=== PATIENT | female | born 1980 | race Caucasian/White ===

== ENCOUNTER 2018-04-05 14:56 | Emergency (ER) | payer OTHER ==
[2018-04-05 15:11] VITALS: BP 131/71; PULSE 70; TEMP 98.7; BMI 23.6
[2018-04-05] MEDS ORDERED: METOCLOPRAMIDE HCL INJECTION 10 MG/2 ML VIAL IVPUSH ONE (16:01)
[2018-04-05] MEDS ORDERED: SODIUM CHLORIDE 1,000 ML IV STA (16:01)
[2018-04-05] MEDS ORDERED: METOCLOPRAMIDE HCL INJECTION 10 MG/2 ML VIAL ONE (16:24)
--- NOTE | 2018-04-05 16:40 | PDOC ---
History of Present Illness - General History Source: Patient Exam Limitations: Clinical Condition - History of Present Illness Initial Comments: 04/05/18 16:34 Patient with no significant past medication present with complaint of 2 weeks history of dizziness, spinning sensation, nausea and increased light sensitivity upon week. Patient saw a PCP 2 weeks ago for same symptoms and was prescribed Imitrex for possible migraine or vertigo. Patient reports symptoms persistent and she follow-up in urgent care today who gave her meclizine and to her to come to ER for head CAT scan due to possible intracranial mass versus vertigo. Patient denies vomiting, headache, chest pain, shortness of breath, blurry vision. Patient denies any other symptoms Timing/Duration: other (2 weeks) <Raciel Vernon - Last Filed: 04/07/18 11:30> <Darshana Buckley - Last Filed: 04/09/18 09:32> - General Chief Complaint: Lightheaded Stated Complaint: Migraine Headache Time Seen by Provider: 04/05/18 15:28 Past History - Past Medical History Asthma: No Cancer: No Cardiac Disorders: No Diabetes: No HTN: No Seizures: No Thyroid Disease: No - Surgical History Appendectomy: Yes - Suicide/Smoking/Psychosocial Hx Smoking Status: No Smoking History: Never smoked Have you smoked in the past 12 months: No Number of Cigarettes Smoked Daily: 0 Information on smoking cessation initiated: No Hx Alcohol Use: No Drug/Substance Use Hx: No Hx Substance Use Treatment: No <Raciel Vernon - Last Filed: 04/07/18 11:30> <Darshana Buckley - Last Filed: 04/09/18 09:32> - Past Medical History Allergies/Adverse Reactions: Allergies Allergy/AdvReac Type Severity Reaction Status Date / Time No Known Drug Allergies Allergy Verified 04/05/18 15:11 Home Medications: Ambulatory Orders Ibuprofen [Motrin -] 600 mg PO Q8H 04/05/18 Meclizine HCl [Antivert -] 25 mg PO Q8H 04/05/18 Metoclopramide HCl [Reglan] 10 mg PO Q8H PRN #20 tablet 04/05/18 Ondansetron [Zofran Odt -] 4 mg SL Q8H PRN #21 od.tablet 04/05/18 Review of Systems - Review of Systems Able to Perform ROS?: Yes Is the patient limited Chinese proficient: No Constitutional: No: Chills, Fever, Malaise, Weakness HEENTM: Yes: Other (increase photosensitivity). No: Blurred Vision, Tearing, Recent change in vision, Double Vision Respiratory: No: Symptoms reported Cardiac (ROS): No: Symptoms Reported ABD/GI: Yes: See HPI, Nausea. No: Vomiting All Other Systems: Reviewed and Negative <Raciel Vernon - Last Filed: 04/07/18 11:30> *Physical Exam - Vital Signs Last Vital Signs Temp Pulse Resp BP Pulse Ox 98.7 F 70 16 131/71 100 04/05/18 15:08 04/05/18 15:08 04/05/18 15:08 04/05/18 15:08 04/05/18 15:08 - Physical Exam Comments: 04/05/18 16:37 GENERAL: Well developed, well nourished. Awake and alert. No acute distress. HEENT: Normocephalic, atraumatic. PERRLA, EOMI. No conjunctival pallor. Sclera are non-icteric. Moist mucous membranes. Oropharynx is clear. NECK: Supple. Full ROM. CARDIOVASCULAR: Regular rate and rhythm. No murmurs, rubs, or gallops. Distal pulses are 2+ and symmetric. PULMONARY: No evidence of respiratory distress. Lungs clear to auscultation bilaterally. No wheezing, rales or rhonchi. ABDOMINAL: Soft. Non-tender. Non-distended. No rebound or guarding. No organomegaly. Normoactive bowel sounds. MUSCULOSKELETAL Normal range of motion at all joints. EXTREMITIES: No cyanosis. No clubbing. No edema. No calf tenderness. SKIN: Warm and dry. Normal capillary refill. No rashes. No jaundice. NEUROLOGICAL: Alert, awake, appropriate. Gait is normal without ataxia. Normal tandem walking. Normal hand to nose coordination. PSYCHIATRIC: Cooperative. Good eye contact. Appropriate mood General Appearance: Yes: Nourished, Appropriately Dressed. No: Apparent Distress <Raciel Vernon - Last Filed: 04/07/18 11:30> - Vital Signs Last Vital Signs Temp Pulse Resp BP Pulse Ox 98.7 F 70 16 131/71 100 04/05/18 15:08 04/05/18 15:08 04/05/18 15:08 04/05/18 15:08 04/05/18 15:08 <Darshana Buckley - Last Filed: 04/09/18 09:32> Moderate Sedation - Procedure Monitoring Vital Signs: Procedure Monitoring Vital Signs Temperature 98.7 F 04/05/18 15:08 Pulse Rate 70 04/05/18 15:08 Respiratory Rate 16 04/05/18 15:08 Blood Pressure 131/71 04/05/18 15:08 O2 Sat by Pulse Oximetry (%) 100 04/05/18 15:08 <Raciel Vernon - Last Filed: 04/07/18 11:30> - Procedure Monitoring Vital Signs: Procedure Monitoring Vital Signs Temperature 98.7 F 04/05/18 15:08 Pulse Rate 70 04/05/18 15:08 Respiratory Rate 16 04/05/18 15:08 Blood Pressure 131/71 04/05/18 15:08 O2 Sat by Pulse Oximetry (%) 100 04/05/18 15:08 <Darshana Buckley - Last Filed: 04/09/18 09:32> ED Treatment Course - LABORATORY CBC & Chemistry Diagram: 04/05/18 16:40 04/05/18 16:40 - RADIOLOGY Radiology Studies Ordered: Category Date Time Status HEAD CT WITHOUT CONTRAST [CT] Stat CT Scan 04/05/18 16:29 Ordered <Raciel Vernon - Last Filed: 04/07/18 11:30> - LABORATORY CBC & Chemistry Diagram: 04/05/18 16:40 04/05/18 16:40 - ADDITIONAL ORDERS Additional order review: 04/05/18 18:49 Urine Culture - Final Urine - Urine Clean Catch Escherichia Coli 04/05/18 16:40 RBC 4.27 MCV 87.2 MCHC 34.8 RDW 13.5 MPV 9.5 Neutrophils % 56.6 D Lymphocytes % 36.2 D Monocytes % 6.3 Eosinophils % 0.5 Basophils % 0.4 - Medications Given in the ED: ED Medications Discontinued Medications Generic Name Dose Route Start Last Admin Trade Name Freq PRN Reason Stop Dose Admin Sodium Chloride 1,000 mls @ 1,000 mls/hr 04/05/18 16:01 04/05/18 16:45 Normal Saline - IV 04/05/18 17:00 1,000 mls/hr ASDIR STA Administration Meclizine HCl 25 mg 04/05/18 16:59 04/05/18 17:48 Antivert - PO 04/05/18 17:00 25 mg ONCE ONE Administration Metoclopramide HCl 10 mg 04/05/18 16:01 04/05/18 16:45 Reglan Injection - IVPUSH 04/05/18 16:02 10 mg ONCE ONE Administration <Darshana Buckley - Last Filed: 04/09/18 09:32> Medical Decision Making - Medical Decision Making 04/05/18 16:38 Patient with no significant past medication present with complaint of sudden onset of dizziness, spinning sensation, nausea and light sensitivity which has been persistent for 2 weeks. Patient saw PCP and prescribed Imitrex which did not help her symptoms. Patient seen in the urgent care and given meclizine when she reported help with symptoms by symptoms come back and advise by urgent care to have head CT done. Clinical exam unremarkable with normal neuro exam. CBC, CMP, UA and urine hCG ordered. Reglan 10 mg IV ordered. IV hydration with normal saline 1 L ordered. Symptoms likely vertigo and patient will be discharged home to continue meclizine with neurology follow-up if negative head CT 04/05/18 17:55 CBC,CMP labs shows no abnormality. UA,UHCG still pending. patient feeling better with reglan but report still have mild dizziness. meclizine 25mg PO given. pt sent for head CT. pt had tubal ligation and sign paper to have CT done without waiting for hcg 04/05/18 18:28 04/05/18 19:09 pt report complete resolve of symptoms with reglan and meclizine. pt request rx for reglan. head CT pending reading. pt signed out to overnight ROSALINA Grady <Raciel Vernon - Last Filed: 04/07/18 11:30> *DC/Admit/Observation/Transfer - Discharge Dispostion Decision to Admit order: No <Raciel Vernon - Last Filed: 04/07/18 11:30> - Attestations Physician Attestion: I reviewed the case with the mid-level practitioner and agree with the mid- level practitioner's assessment, diagnosis and disposition. CTH obtained, as patient has been having dizziness and FIELDS that wakes her in AM. If neg, DC home. <Darshana Buckley - Last Filed: 04/09/18 09:32> Diagnosis at time of Disposition: Vertigo - Discharge Dispostion Disposition: HOME Condition at time of disposition: Stable - Prescriptions Prescriptions: Metoclopramide HCl [Reglan] 10 mg PO Q8H PRN #20 tablet PRN Reason: vertigo Ondansetron [Zofran Odt -] 4 mg SL Q8H PRN #21 od.tablet PRN Reason: nausea - Referrals Referrals: Wendy Babin MD [Primary Care Provider] - Jean Glover MD [Staff Physician] - - Patient Instructions Printed Discharge Instructions: Vertigo, DI for Vertigo Additional Instructions: Your labs was normal. Your head CAT scan was normal. your symptoms are likely from vertigo. take the prescribed meclizine as needed for vertigo with zofran as needed for nausea. take reglan as needed for vertigo if meclizine does not work.follow-up with referred neurologist as soon as possible - Post Discharge Activity
[2018-04-05 16:55] LABS: BASO % 0.4 % (0-2.0); EOS % 0.5 % (0-4.5); HEMATOCRIT 37.2 % (32.4-45.2); LYMPH % 36.2 % (8-40); MCH 30.4 pg (25.7-33.7); MCHC 34.8 g/dl (32.0-36.0); MEAN CELL VOLUME 87.2 fl (80-96); MEAN PLT VOLUME 9.5 fl (7.5-11.1); MONO % 6.3 % (3.8-10.2); NEUT % 56.6 % (42.8-82.8); PLATELET COUNT 200 K/MM3 (134-434); RBC 4.27 M/mm3 (3.60-5.2); RDW 13.5 % (11.6-15.6)
[2018-04-05] MEDS ORDERED: MECLIZINE HCL 25 MG TABLET (FP) PO ONE (16:59)
[2018-04-05 17:17] LABS: ALBUMIN 3.7 g/dl (3.4-5.0); ALK PHOS 51 U/L (45-117); ANION GAP 5 MMOL/L (8-16); BILIRUBIN,TOTAL 0.4 mg/dL (0.2-1); BLOOD UREA NITROGEN 9 mg/dL (7-18); CALCIUM 8.6 mg/dL (8.5-10.1); CHLORIDE 103 mmol/L (98-107); CO2 29 mmol/L (21-32); CREATININE 0.6 mg/dL (0.55-1.3); GLUCOSE,RANDOM 78 mg/dL (74-106); POTASSIUM 4.1 mmol/L (3.5-5.1); SGOT/AST 17 U/L (15-37); SGPT/ALT 16 U/L (13-61); SODIUM 138 mmol/L (136-145); TOT PROT 7.4 g/dl (6.4-8.2)
[2018-04-05] MEDS ORDERED: MECLIZINE HCL 25 MG TABLET (FP) ONE (17:47)
[2018-04-05 19:16] LABS: URINE APPEARANCE CLEAR; URINE BILIRUBIN NEGATIVE (<2.0 mg/dL); URINE COLOR STRAW; URINE GLUCOSE (UA) NEGATIVE (NEGATIVE); URINE KETONE NEGATIVE (NEGATIVE); URINE LEUK ESTERASE NEGATIVE (NEGATIVE); URINE NITRITE NEGATIVE (NEGATIVE); URINE PROTEIN NEGATIVE (NEGATIVE); URINE UROBILINOGEN NEGATIVE mg/dL (0.2-1.0)
--- NOTE | 2018-04-05 19:30 | PDOC ---
*Physical Exam - Vital Signs Last Vital Signs Temp Pulse Resp BP Pulse Ox 98.7 F 70 16 131/71 100 04/05/18 15:08 04/05/18 15:08 04/05/18 15:08 04/05/18 15:08 04/05/18 15:08 ED Treatment Course - LABORATORY CBC & Chemistry Diagram: 04/05/18 16:40 04/05/18 16:40 - ADDITIONAL ORDERS Additional order review: Laboratory Results 04/05/18 04/05/18 18:49 16:40 Sodium 138 Potassium 4.1 Chloride 103 Carbon Dioxide 29 Anion Gap 5 L BUN 9 Creatinine 0.6 Creat Clearance w eGFR > 60 Random Glucose 78 Calcium 8.6 Total Bilirubin 0.4 AST 17 ALT 16 Alkaline Phosphatase 51 Total Protein 7.4 Albumin 3.7 Urine Color Straw Urine Appearance Clear Urine pH 7.0 Ur Specific [place] 1.010 Urine Protein Negative Urine Glucose (UA) Negative Urine Ketones Negative Urine Blood Negative Urine Nitrite Negative Urine Bilirubin Negative Urine Urobilinogen Negative Ur Leukocyte Esterase Negative 04/05/18 16:40 RBC 4.27 MCV 87.2 MCHC 34.8 RDW 13.5 MPV 9.5 Neutrophils % 56.6 D Lymphocytes % 36.2 D Monocytes % 6.3 Eosinophils % 0.5 Basophils % 0.4 - Medications Given in the ED: ED Medications Discontinued Medications Generic Name Dose Route Start Last Admin Trade Name Freq PRN Reason Stop Dose Admin Sodium Chloride 1,000 mls @ 1,000 mls/hr 04/05/18 16:01 04/05/18 16:45 Normal Saline - IV 04/05/18 17:00 1,000 mls/hr ASDIR STA Administration Meclizine HCl 25 mg 04/05/18 16:59 04/05/18 17:48 Antivert - PO 04/05/18 17:00 25 mg ONCE ONE Administration Metoclopramide HCl 10 mg 04/05/18 16:01 04/05/18 16:45 Reglan Injection - IVPUSH 04/05/18 16:02 10 mg ONCE ONE Administration Medical Decision Making - Medical Decision Making 04/05/18 19:25 Patient endorsed to follow CT scan and disposition Patient Full Name: MARIAH WILD Patient Accession No: [id number] Patient : 1980 Reason for Exam: dizziness Referring Physician: LEELEE WINN Patient Name: JUNITO LEMUS THIS IS A PRELIMINARY REPORT FROM [facility] [employer] [facility] DATE OF SERVICE: 2018-04-05 18:20:49 IMAGES: [id number] EXAM: CT head without contrast HISTORY: Dizziness COMPARISON: None. FINDINGS: There is no evidence of acute infarction. There is no hemorrhage. No mass lesion is seen. There is no skull fracture. Visualized portions of the paranasal sinuses are essentially clear. Mastoid air cells are normally pneumatized. One or more of the following dose reduction techniques were used: automated exposure control, adjustment of the mA and/or kV according to patient size, use of iterative reconstructive technique. THIS DOCUMENT HAS BEEN ELECTRONICALLY SIGNED Lon Horn MD 04/05/2018 19:09 BIRDIE De [place] Paz Please call Imaging Shift Engineer [phone]) with questions. INTERPRETING RADIOLOGIST: Lon Horn MD Electronically Signed: Apr 05, 2018 07:10PM EST I discussed the physical exam findings, ancillary test results and final diagnoses with the patient. I answered all of the patient's questions. The patient was satisfied with the care received and felt comfortable with the discharge plan and treatment plan. The Patient agrees to follow up with the primary care physician within 24-72 hours. *DC/Admit/Observation/Transfer Diagnosis at time of Disposition: Vertigo - Discharge Dispostion Disposition: HOME Condition at time of disposition: Stable - Prescriptions Prescriptions: Metoclopramide HCl [Reglan] 10 mg PO Q8H PRN #20 tablet PRN Reason: vertigo Ondansetron [Zofran Odt -] 4 mg SL Q8H PRN #21 od.tablet PRN Reason: nausea - Referrals Referrals: Jean Glover MD [Staff Physician] - Wendy Babin MD [Primary Care Provider] - - Patient Instructions Printed Discharge Instructions: Vertigo, DI for Vertigo Additional Instructions: Your labs was normal. Your head CAT scan was normal. your symptoms are likely from vertigo. take the prescribed meclizine as needed for vertigo with zofran as needed for nausea. take reglan as needed for vertigo if meclizine does not work.follow-up with referred neurologist as soon as possible - Post Discharge Activity
== END 2018-04-05 20:19 | disposition home or self-care (01) ==
LOC: JER 14:56
PROC: 3E033GC Introduction of Other Therapeutic Substance into Peripheral Vein, Percutaneous Approach (ICD-10-PCS; principal; 2018-04-05)
PROC: 3E0337Z Introduction of Electrolytic and Water Balance Substance into Peripheral Vein, Percutaneous Approach (ICD-10-PCS; 2018-04-05)
DX: R42 Dizziness and giddiness (principal)
CPT/HCPCS: 36415; 70450-TC; 80053; 81003; 85025; 87086; 87186; 96361; 96374; 99282-25; J7030

== ENCOUNTER 2018-08-14 07:08 | Emergency (ER) | payer OTHER ==
[2018-08-14 07:20] VITALS: BMI 23.8
--- NOTE | 2018-08-14 07:34 | PDOC ---
History of Present Illness - General Chief Complaint: Sore Throat Stated Complaint: THROAT/EAR PAIN Time Seen by Provider: 08/14/18 07:33 - History of Present Illness Initial Comments: 38 yo F with no significant PMH presenting with 7-12/05 sore throat. Patient states she felt a subjective fever and chills on Friday. On Friday, she started having a sore throat and bilateral ear pain. On (yesterday), she had worsening throat pain and just right-sided ear pain. Denies cough or nasal congestion. Patient reports that she is able to tolerate po intake, but has been eating and drinking less as such will exacerbate her throat pain. She has tried throat sprays with relief, but the analgesia does not last very long. Patient last took tylenol around 2:30am. No ear drainage. Her children had sore throats about two weeks ago but they tested negative for strep. Denies other sick contacts or recent travel. PCP: Dr. Ge Rehman Past History - Past Medical History Allergies/Adverse Reactions: Allergies Allergy/AdvReac Type Severity Reaction Status Date / Time No Known Drug Allergies Allergy Verified 08/14/18 07:13 Home Medications: Ambulatory Orders Ibuprofen [Motrin -] 600 mg PO Q8H 04/05/18 Meclizine HCl [Antivert -] 25 mg PO Q8H 04/05/18 Metoclopramide HCl [Reglan] 10 mg PO Q8H PRN #20 tablet 04/05/18 Ondansetron [Zofran Odt -] 4 mg SL Q8H PRN #21 od.tablet 04/05/18 Nitrofurantoin Monohyd/M-Cryst [Macrobid -] 100 mg PO BID #14 capsule 04/11/18 Asthma: No Cancer: No Cardiac Disorders: No CVA: No COPD: No Diabetes: No HTN: No Seizures: No Thyroid Disease: No - Surgical History Appendectomy: Yes - Reproductive History Tubal Ligation: Yes (2012) - Immunization History Immunization Up to Date: Yes - Suicide/Smoking/Psychosocial Hx Smoking Status: No Smoking History: Never smoked Have you smoked in the past 12 months: No Number of Cigarettes Smoked Daily: 0 Information on smoking cessation initiated: No Hx Alcohol Use: No Drug/Substance Use Hx: No Hx Substance Use Treatment: No Review of Systems - Review of Systems Comments:: Constitutional: +fever, +chills HEENT: +throat pain, no nasal congestion Cardiovascular: no chest pain, no palpitations Respiratory: no cough, no shortness of breath Gastrointestinal: no abdominal pain, no nausea Genitourinary: no dysuria, no frequency Musculoskeletal: no myalgia, no arthralgia Skin: no rash, no itching Neurologic: no headache, no weakness *Physical Exam - Vital Signs Last Vital Signs Temp Pulse Resp BP Pulse Ox 98.9 F 101 H 17 127/81 99 08/14/18 07:14 08/14/18 07:14 08/14/18 07:14 08/14/18 07:14 08/14/18 07:14 - Physical Exam Comments: General: Awake, alert, and fully oriented, in no acute distress Head: No signs of trauma Eyes: EOMI, sclera anicteric ENT: Moist mucus membranes, normal TMs, uvula midline, swollen erythematous tonsils with no petechiae or exudates Neck: Normal ROM, supple Lungs: Lungs clear, Normal breath sounds Cardio: Regular rhythm, S1 and S2 present Abdomen: Soft, nontender Extremities: Normal range of motion, Distal pulses present SKIN: Warm, Dry, normal turgor Neurologic: Cranial nerves II through XII grossly intact. Normal speech Medical Decision Making - Medical Decision Making 38 yo F with no significant PMH presenting with 7-8/10 sore throat. DDX including but not limited to Strep pharyngitis, viral pharyngitis, peritonsillar abscess, retropharyngeal abscess Rapid stress test Dexamethasone Motrin Exam with uvula midline bilateral tonsillar enlargement. Low suspicion for abscess 08/14/18 08:36 Called lab. Still pending strep test. 08/14/18 09:35 Strep positive Option for IM injection vs po antibiotics given to patient. Patient chose IM injection. Penacillin IM given Patient reports some alleviation of her throat pain. Plan to discharge 08/14/18 10:09 *DC/Admit/Observation/Transfer Diagnosis at time of Disposition: Pharyngitis Qualifiers: Pharyngitis/tonsillitis etiology: streptococcus Qualified Code(s): J02.0 - Streptococcal pharyngitis - Discharge Dispostion Disposition: HOME Condition at time of disposition: Stable - Referrals Referrals: Wendy Babin MD [Primary Care Provider] - - Patient Instructions Printed Discharge Instructions: DI for Strep Throat Additional Instructions: You came into the emergency department for sore throat. Testing for strep was positive. You received a one-time antibiotics shot. If you want some relief from the pain of sore throat, you can take pain medicine that you can get without a prescription. Throat sprays are no better at soothing pain than sucking on cough drops or candy. Some people feel relief if they gargle with salt water. You can also take [id number] tylenol or motrin for your pain. Follow the instructions on the medication bottle. Immediate medical attention is required if you have: you develop swelling of the neck or tongue, stiff neck or difficulty opening the mouth, skin rash, difficulty breathing, or any new or concerning symptoms. If you think you are having an emergency, call for emergency medical services or present to the emergency department right away - Post Discharge Activity
--- NOTE | 2018-08-14 07:47 | PDOC ---
Attending Attestation - Resident Resident Name: Darshana Lira - ED Attending Attestation I have performed the following: I have examined & evaluated the patient, The case was reviewed & discussed with the resident, I agree w/resident's findings & plan, Exceptions are as noted - HPI HPI: 08/14/18 07:48 38y F presents with sore throat and some R ear pain assoc with subjective fever at onset for the past 3 days. Able to tolerate oral intake, attempted OTC meds with some relief. Pt denie sany cough, sob, cp. HEENT: Uvula midline, erythemadous and enlarged tonsils w/o exudates, TM nonerythadous wo bulging PULM: CTA b/l CARD: rrr, no mrg ddx: viral vs strep pharyngitis will obtain rapid strep will give decadron & motrin for sypmtomatic relief - Physicial Exam PE: see above - Medical Decision Making I discussed the physical exam findings, ancillary test results and final diagnoses with the patient. I answered all of the patient's questions. The patient was satisfied with the care received and felt comfortable with the discharge plan and treatment plan. The patient will call their primary care physician within 24 hours to arrange follow-up and will return to the Emergency Department with any new, persistent or worsening symptoms.
[2018-08-14] MEDS ORDERED: IBUPROFEN 400 MG TABLET (FP) PO ONE ×2 (08:00→08:13)
[2018-08-14] MEDS ORDERED: DEXAMETHASONE 4 MG TABLET (FP) PO ONE (08:00)
[2018-08-14] MEDS ORDERED: DEXAMETHASONE SOD PHOSPHATE 10 MG/1 ML VIAL ONE (08:13)
[2018-08-14] MEDS ORDERED: PENICILLIN G BENZATHINE 1,200,000 UNIT/2 ML PFS IM ONE ×2 (09:59→10:06)
[2018-08-14 10:14] VITALS: BP 122/70; PULSE 76; TEMP 98.1
== END 2018-08-14 10:14 | disposition home or self-care (01) ==
LOC: JER 07:08
DX: J02.0 Streptococcal pharyngitis (principal); B95.0 Streptococcus, group A, as the cause of diseases classified elsewhere
CPT/HCPCS: 87880; 96372; 99281-25